=== PATIENT | male | born 1985 ===

== ENCOUNTER 2021-09-23 22:09 | Emergency (ER) | payer SELFPAY ==
[2021-09-23 22:18] VITALS: BP 135/85
[2021-09-23] MEDS ORDERED: ONDANSETRON 4 MG ODT TAB PO ONE (22:56)
[2021-09-23] MEDS ORDERED: SODIUM CHLORIDE 0.9% 1000 ML 1,000 ML IV ONE (23:12)
--- NOTE | 2021-09-23 23:17 | Emergency Department Report ---
ED General Adult HPI - General Chief complaint: Abdominal Pain Stated complaint: headache/vomiting Time Seen by Provider: 09/23/21 22:42 Source: patient Mode of arrival: Ambulatory Limitations: No Limitations - History of Present Illness Initial comments: Patient is a 36-year-old male who presents for bilateral upper abdominal pain with nausea vomiting headache for 4 days. Patient advises history of GERD. Patient denies smoking occasional drinking. Patient not Covid vaccinated there is no cough there is no sore throat there is no ear pain. It was are exacerbated by eating. Symptoms are relieved by nothing tried. She denies abdominal surgeries. Patient does endorse diarrhea that has been no melena. Symptoms are exacerbating frontal headache. It is rated 4/10 constant aching sharp. Patient is primarily Armenian-speaking however patient speaks sufficient Yoruba taking medications safely. - Related Data Previous Rx's Medication Instructions Recorded Last Taken Type Ketorolac [Toradol] 10 mg PO Q6H PRN #12 tablet 09/24/21 Unknown Rx levoFLOXacin [Levaquin TAB] 500 mg PO QDAY 7 Days #7 tablet 09/24/21 Unknown Rx Allergies Allergy/AdvReac Type Severity Reaction Status Date / Time No Known Allergies Allergy Verified 09/23/21 22:18 ED Review of Systems ROS: Stated complaint: headache/vomiting Other details as noted in HPI Constitutional: fever, malaise. denies: chills Eyes: denies: eye pain, eye discharge, vision change ENT: denies: ear pain, throat pain, congestion Respiratory: denies: cough, shortness of breath, wheezing Cardiovascular: denies: chest pain, palpitations Endocrine: no symptoms reported Gastrointestinal: abdominal pain, nausea, vomiting, diarrhea. denies: constipation, hematemesis, melena, hematochezia Genitourinary: denies: urgency, dysuria, frequency, hematuria, discharge Musculoskeletal: denies: back pain, myalgia Skin: denies: rash Neurological: headache. denies: numbness, paresthesias, confusion, vertigo Psychiatric: denies: anxiety, depression Hematological/Lymphatic: denies: easy bleeding, easy bruising ED Past Medical Hx - Past Medical History Previous Medical History?: No - Surgical History Past Surgical History?: No - Medications Home Medications: Home Medications Medication Instructions Recorded Confirmed Last Taken Type Ketorolac [Toradol] 10 mg PO Q6H PRN #12 tablet 09/24/21 Unknown Rx levoFLOXacin [Levaquin TAB] 500 mg PO QDAY 7 Days #7 tablet 09/24/21 Unknown Rx ED Physical Exam - General Limitations: No Limitations General appearance: alert, in no apparent distress - Head Head exam: Present: atraumatic, normocephalic - Eye Eye exam: Present: normal appearance, PERRL, EOMI, conjunctival injection. Absent: nystagmus Pupils: Present: normal accommodation - ENT ENT exam: Present: mucous membranes moist, TM's normal bilaterally. Absent: normal orophraynx - Neck Neck exam: Present: normal inspection, full ROM. Absent: tenderness, meningismus, lymphadenopathy, thyromegaly - Respiratory Respiratory exam: Present: normal lung sounds bilaterally. Absent: respiratory distress, wheezes, stridor, chest wall tenderness - Cardiovascular Cardiovascular Exam: Present: normal rhythm, tachycardia, normal heart sounds - GI/Abdominal GI/Abdominal exam: Present: soft, tenderness (bilat upper abd ), normal bowel sounds. Absent: guarding, rebound, rigid, bruit, hernia - Expanded GI/Abdominal Exam Expanded GI/Abdominal exam: Absent: psoas sign, obturator sign, heel tap sign, Zhou's sign, Rovsing's sign, tenderness at Mcburney's Point, ascites - Rectal Rectal exam: Present: deferred - Extremities Exam Extremities exam: Present: normal inspection, full ROM, normal capillary refill. Absent: tenderness - Back Exam Back exam: Present: normal inspection, full ROM. Absent: CVA tenderness (R), CVA tenderness (L) - Neurological Exam Neurological exam: Present: alert, oriented X3, CN II-XII intact, normal gait - Psychiatric Psychiatric exam: Present: normal affect, normal mood - Skin Skin exam: Present: warm, dry, intact, normal color. Absent: rash ED Course Vital Signs 09/23/21 22:16 Temperature 102.3 F H Pulse Rate 117 H Respiratory 19 Rate Blood Pressure 135/85 [Right] O2 Sat by Pulse 98 Oximetry ED Medical Decision Making - Lab Data Result diagrams: 09/23/21 23:14 09/23/21 23:14 Labs 09/23/21 09/23/21 09/23/21 23:14 23:14 23:14 WBC 16.0 H RBC 4.90 Hgb 14.4 Hct 43.3 MCV 88 MCH 29 MCHC 33 RDW 13.2 Plt Count 263 Lymph % (Auto) 5.1 L Hamb[place] % (Auto) 5.3 Eos % (Auto) 0.0 Baso % (Auto) 0.4 Lymph # (Auto) 0.8 L [place] # (Auto) 0.8 Eos # (Auto) 0.0 Baso # (Auto) 0.1 Seg Neutrophils % 89.2 H Seg Neutrophils # 14.2 H Sodium 137 Potassium 4.3 Chloride 101.4 Carbon Dioxide 24 Anion Gap 16 BUN 9 Creatinine 0.9 Estimated GFR > 60 BUN/Creatinine Ratio 10 Glucose 119 H Calcium 9.4 Total Bilirubin 1.50 H AST 50 H ALT 61 H Alkaline Phosphatase 171 H Total Protein 8.3 H Albumin 4.5 Albumin/Globulin Ratio 1.2 Lipase 31 Urine Color Zena Urine Turbidity Clear Urine pH 6.0 Ur Specific Barre 1.029 Urine Protein 100 mg/dl Urine Glucose (UA) Neg Urine Ketones Neg Urine Blood Neg Urine Nitrite Neg Urine Bilirubin Neg Urine Urobilinogen 4.0 Ur Leukocyte Esterase Neg Urine WBC (Auto) 2.0 Urine RBC (Auto) 1.0 U Epithel Cells (Auto) < 1.0 Urine Mucus 2+ - Radiology Data Radiology results: report reviewed, image reviewed T OF THE ABDOMEN AND PELVIS WITH INTRAVENOUS CONTRAST INDICATION / CLINICAL INFORMATION: Bilateral upper abd pain with nausea and vomiting; headache. TECHNIQUE: The patient received 100 cc Omnipaque [address] scans at this location are performed using CT dose reduction for ALARA by means of automated exposure control. COMPARISON: None available. FINDINGS: ABDOMEN: There is mild generalized decreased density of the liver parenchyma compared to the spleen without focal lesion. The gallbladder, bile ducts, pancreas, spleen, and adrenal glands demonstrate no significant abnormality. 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 There is a 1 mm nonobstructive calculus in the upper pole of the right kidney. There is no evidence of bowel obstruction, wall thickening or free air. No adenopathy is present. The aorta is normal. The lung bases are clear. PELVIS: The distal ureters, urinary bladder, prostate gland and seminal vesicles are normal. A normal appendix is present and there is no evidence of diverticulitis. No ab normal mass or fluid collection is seen. I do not identify a hernia. No osseous abnormality is pres ent. IMPRESSION: 1. No acute abnormality is identified. 2. Tiny nonobstructive right renal calculus. 3. Mild diffuse fatty infiltration of the liver. Signer Name: Jordin Zarco MD Signed: 09/24/2021 1:45 AM Workstation Name: [id number] Transcribed By: RT Dictated By: Jordin Zarco MD Electronically Authenticated By: Jordin Zarco MD Signed Date/Time: 09/24/21 0145 - Medical Decision Making CT abdomen and pelvis small nonobstructing right renal calculi, fatty liver disease, no other abnormality no mass no bleed no soft tissue abnormalities. Patient advises symptoms are improved. UA is normal, labs noted. Plan DC to home, follow-up with primary care doctor in 2 to 3 days. Take all medications a s prescribed, return to emergency department should symptoms worsen. Critical care attestation.: If time is entered above; I have spent that time in minutes in the direct care of this critically ill patient, excluding procedure time. ED Disposition Clinical Impression: Kidney stone on right side, Fatty liver Disposition: HOME / SELF CARE / HOMELESS Is pt being admited?: No Does the pt Need Aspirin: No Condition: Stable Instructions: Kidney Stones, Fatty Liver Disease Additional Instructions: Take all medications as prescribed, follow-up primary care doctor in 2 to 3 d ays. Return to emergency should symptoms worsen. Prescriptions: levoFLOXacin [Levaquin TAB] 500 mg PO QDAY 7 Days #7 tablet Ketorolac [Toradol] 10 mg PO Q6H PRN #12 tablet PRN Reason: Pain Referrals: CONY MARI MD [Staff Physician] - 3-5 Days [facility] [Provider Group] - 3-5 Days Forms: Work/School Release Form(ED) Time of Disposition: 02:03
[2021-09-23 23:32] LABS: Basophils # (Auto) 0.1 K/mm3 (0.0-0.1); Basophils % (Auto) 0.4 % (0.0-1.8); Hematocrit 43.3 % (35.5-45.6); Hemoglobin 14.4 gm/dl (11.8-15.2); Lymphocytes # (Auto) 0.8 K/mm3 (1.2-5.4); Lymphocytes % (Auto) 5.1 % (13.4-35.0); Mean Corpuscular HGB Conc 33 % (32-34); Mean Corpuscular Volume 88 fl (84-94); Monocytes # (Auto) 0.8 K/mm3 (0.0-0.8); Monocytes % (Auto) 5.3 % (0.0-7.3); Platelet Count 263 K/mm3 (140-440); Red Cell Distribution Width 13.2 % (13.2-15.2)
[2021-09-23 23:43] LABS: Bilirubin,Urine NEG (Negative); Blood,Urine NEG (Negative); Color,Urine Amber (Yellow); Mucus,Urine 2+ /HPF
[2021-09-23 23:54] LABS: Alanine Aminotransferase 61 units/L (7-56); Albumin 4.5 g/dL (3.9-5); BUN/Creatinine Ratio 10; Blood Urea Nitrogen 9 mg/dL (9-20); Calcium 9.4 mg/dL (8.4-10.2); Hemolysis Index 6
--- NOTE | 2021-09-24 01:49 | Cat Scan Report ---
CT OF THE ABDOMEN AND PELVIS WITH INTRAVENOUS CONTRAST INDICATION / CLINICAL INFORMATION: Bilateral upper abd pain with nausea and vomiting; headache. TECHNIQUE: The patient received 100 cc Omnipaque [address] scans at this location are performed using CT dose reduction for ALARA by means of automated exposure control. COMPARISON: None available. FINDINGS: ABDOMEN: There is mild generalized decreased density of the liver parenchyma compared to the spleen w ithout focal lesion. The gallbladder, bile ducts, pancreas, spleen, and adrenal glands demonstrate no significant abnormality. 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 There is a 1 mm nonobstructive calculus in the upper pole of the right kidney. There is no evidence of bowel obstruction, wall thickening or free air. No adenopathy is present. The aorta is normal. The lung bases are clear. PELVIS: The distal ureters, urinary bladder, prostate gland and seminal vesicles are normal. A normal appendix is present and there is no evidence of diverticulitis. No abnormal mass or fluid collection is seen. I do not identify a hernia. No osseous abnormality is present. IMPRESSION: 1. No acute abnormality is identified. 2. Tiny nonobstructive right renal calculus. 3. Mild diffuse fatty infiltration of the liver. Signer Name: Jordin Zarco MD Signed: 09/24/2021 1:45 AM Workstation Name: [id number]
[2021-09-24] MEDS ORDERED: KETOROLAC 30 MG/1 ML INJ IV ONE (01:53)
== END 2021-09-24 03:03 | disposition home or self-care (01) ==
LOC: ED 22:09
DX: N20.0 Calculus of kidney (principal); K76.0 Fatty (change of) liver, not elsewhere classified
CPT/HCPCS: 36415; 74177; 80053; 81001; 83690; 85025; 96361; 96374; 99284; J1885; J7030; Q9967; J3490; Q0162